=== PATIENT | female | born 1980 | race Caucasian/White ===

== ENCOUNTER 2017-07-07 08:59 | Emergency (ER) | payer BC ==
[~2017-07-07] VITALS: Ht 162.6 cm; Wt 76.2 kg
[2017-07-07 09:16] VITALS: BP 133/78
--- NOTE | 2017-07-07 09:20 | NUR ---
Patient ambulated to bed 12. RN evaluating patient at bedside.
--- NOTE | 2017-07-07 09:21 | NUR ---
36/F BIB FAMILY C/O vaginal bleeding starting this morning; 8 weeks G-2 P-1. [facility]. PT STATES HAD UTI & TREATED WITH CEPHALEXINE X LAST SATURDAY . DENIES N/V/D; SKIN IS PINK/WARM/DRY; AAOX4 WITH EVEN AND STEADY GAIT; LUNGS CLEAR BL; PATIENT STATES PAIN OF 0/10 AT THIS TIME; PATIENT POSITIONED FOR COMFORT; HOB ELEVATED; BEDRAILS UP X2; BED DOWN. VAL RIGGS MADE AWARE OF PT STATUS. Addendum: 07/07/17 at 0940 by [email or web address] PT STATED " IT IS SMALL AMOUNT OF VAGINAL BLEEDING; REDNESS BUT WHEN AFTER URENATED I DON'T HAVE VAG BLEEDING". DENIES ANY PAIN AT THIS TIME.
--- NOTE | 2017-07-07 09:30 | NUR ---
Patient being evaluated by DR ROBISON at bedside.
--- NOTE | 2017-07-07 09:38 | NUR ---
LAB AT BEDSIDE.
[2017-07-07 09:50] LABS: BASOPHILS # (AUTO) 0.3 K/uL (0.00-0.22); BASOPHILS % (AUTO) 3.2 % (0.0-2.0); EOSINOPHILS # (AUTO) 0.2 K/uL (0-0.4); EOSINOPHILS % (AUTO) 2.8 % (0.0-4.0); HEMOGLOBIN 11.4 g/dL (12.0-16.0); LYMPHOCYTES # (AUTO) 1.1 K/uL (2.5-16.5); LYMPHOCYTES % (AUTO) 13.9 % (20.5-51.1); MEAN CORPUSCULAR HEMOGLOBIN 31 pg (27-31); MEAN CORPUSCULAR HGB CONC 34 g/dL (33-37); MEAN CORPUSCULAR VOLUME 91 fL (80-94); MONOCYTES # (AUTO) 0.7 K/uL (0.8-1.0); MONOCYTES % (AUTO) 8.5 % (1.7-9.3); NEUTROPHILS # (AUTO) 5.9 K/uL (1.8-7.7); NEUTROPHILS % (AUTO) 71.6 % (42.2-75.2); PLATELET COUNT (AUTO) 305 K/uL (140-450); RED BLOOD CELL COUNT(AUTO) 3.72 MIL/uL (4.20-5.40); RED CELL DISTRIBUTION WIDTH 10.6 % (11.6-13.7); WHITE BLOOD COUNT (AUTO) 8.2 K/uL (4.8-10.8)
[2017-07-07 09:54] LABS: APPEARANCE,URINE CLEAR (CLEAR); BILIRUBIN,URINE NEGATIVE (NEGATIVE); BLOOD, URINE NEGATIVE (NEGATIVE); COLOR,URINE YELLOW (YELLOW); LEUKOCYTE ESTERASE ,URINE NEGATIVE (NEGATIVE); NITRITE, URINE NEGATIVE (NEGATIVE); UGLUCOSE NEGATIVE (NEGATIVE)
[2017-07-07 10:03] LABS: ANION GAP 10.8 (8-16); CARBON DIOXIDE 23.8 mmol/L (21-32); CREATININE 0.5 mg/dL (0.6-1.3); POTASSIUM 3.6 mmol/L (3.5-5.1)
[2017-07-07 10:05] LABS: PROTHROMBIN TIME 9.2 secs (10.8-13.4)
[2017-07-07 10:08] LABS: ALBUMIN 3.2 g/dL (3.4-5.0); TOTAL BILIRUBIN 0.2 mg/dL (0.0-1.0)
--- NOTE | 2017-07-07 10:11 | NUR ---
US AT BEDSIDE.
--- NOTE | 2017-07-07 11:20 | NUR ---
Patient appears to be resting comfortably in bed. Vital Signs within normal limits. Respirations even and unlabored.WILL CONTINUE TO MONITOR.
[2017-07-07 12:29] VITALS: BP 120/70
--- NOTE | 2017-07-07 12:30 | NUR ---
Patient discharged with v/s stable. Written and verbal after care instructions given and explained. Patient verbalized understanding. Ambulatory with steady gait. All questions addressed prior to discharge. Advised to follow up with PMD.
== END 2017-07-07 12:30 | disposition home or self-care (01) ==
LOC: MED 08:59
DX: O20.0 Threatened abortion (principal); Z3A.08 8 weeks gestation of pregnancy
CPT/HCPCS: 36415; 76801; 76817; 80053; 81003; 81025; 84702; 85025; 85610; 85730; 86900; 86901; 99285; Q0092